=== PATIENT | female | born 1955 | race Caucasian/White ===

== ENCOUNTER → 2022-12-01 | Outpatient (CLI) | payer MEDICARE | LOC: ORTHO 13:23 | PROVIDERS: ATTEND Orthopaedic Surgery | DX: M25.552 Pain in left hip (principal) | CPT/HCPCS: 99213 ==

== ENCOUNTER → 2022-12-14 | Outpatient (CLI) | payer MEDICARE ==
--- NOTE | 2022-12-14 14:00 | Diagnostic Imaging Report ---
EXAMINATION: Magnetic resonance imaging of the pelvis and left hip without contrast DATE: December 14, 2022. COMPARISON: Left hip radiographs September 14, 2022. INDICATION: 67-year-old female, left hip pain. TECHNIQUE: Magnetic Resonance Imaging sequences were performed of the pelvis and left hip without contrast. TENDONS AND MUSCLES: The gluteus samina muscles and their origins and insertions are intact bilaterally. The tendons and muscles of the greater trochanter - gluteus minimus, piriformis and gluteus medius - are intact bilaterally. Both common hamstring attachments on the ischial tuberosities are intact and the extensor muscles of the thigh are intact. The visualized portions of the flexors and adductor muscles of the thigh and their attachments on the pelvis and hips are intact. Both iliopsoas and iliacus muscles are intact. The bilateral iliopsoas tendons are intact. HIPS AND SACROILIAC JOINTS: There is a 2 mm paralabral cyst on the right adjacent to the superior labrum suggesting an adjacent labral tear. There is no identified fluid-filled labral tear or paralabral cyst on the left. There is mild generalized thinning of the cartilage of the left hip with mild degenerative related edema in the left femoral head. There is no pronounced joint space loss of the right hip. There is no right or left hip joint effusion. The sacroiliac joints are unremarkable. LUMBAR SPINE: There is severe disc height loss at L5-S1. There is otherwise limited evaluation of the lumbar spine. BONE: The bones all have normal configuration. The bone marrow signal is within normal limits. Specifically, negative for fracture, osteomyelitis, osteonecrosis, or marrow replacing process. BURSAE AND SOFT TISSUES: The bursae and soft tissues surrounding the pelvis and hips are within normal limits. IMPRESSION: 1. Small paralabral cyst adjacent to the right hip superior labrum suggesting adjacent labral tear. 2. Mild osteoarthritis of the left hip without identified fluid-filled labral tear or paralabral cyst. 3. No acute fracture, bone contusion, or evidence of osteonecrosis. 4. Severe disc height loss at L5-S1 with otherwise limited assessment of the lumbar spine. 5. Intact muscles and tendons. Dictated by: Dictated on workstation # [id number]
== END ==
LOC: RAD 12:44
PROVIDERS: ATTEND Orthopaedic Surgery
DX: M24.851 Other specific joint derangements of right hip, not elsewhere classified (principal); M16.12 Unilateral primary osteoarthritis, left hip; M51.37 Other intervertebral disc degeneration, lumbosacral region
CPT/HCPCS: 73721